=== PATIENT | female | born 1990 | race Caucasian/White ===

== ENCOUNTER 2019-08-01 14:57 | Emergency (ER) | payer OTHER ==
[~2019-08-01] VITALS: Ht 183.5 cm; Wt 59.0 kg
[2019-08-01 15:03] VITALS: BP 123/70
--- NOTE | 2019-08-01 15:11 | Emergency Room Report ---
History of Present Illness General Chief Complaint: Flu Like Symptoms Source: Patient Present Illness HPI 29-year-old female with no significant past medical history here complaining 5 days of URI symptoms. Patient reports that her symptoms started with generalized body ache, and low-grade fever as well as sore throat however that proceeded with minor cough and congestion and occasional shortness of breath. Reports that today she started having abdominal pain and few bouts of nonbloody diarrhea and one bout of nonbloody emesis. Denies any rash, recent travel, chest pain, headache and dizziness at this time. Reports that she did not take any medication for symptom relief. Patient appears to be afebrile, oxygenation within normal limits and chest x-ray within normal limits. Patient reports that she has been sitting home this whole time. Is interested in COVID testing reports that today she is feels much better. Denies . Allergies: Coded Allergies: No Known Allergies (Unverified , 08/01/19) COVID-19 Screening Contact w/high risk pt: No Recent Travel to affected area: No Experienced COVID-19 symptoms?: Yes COVID-19 symptoms experienced: Fever (T>100.4F or >38C), Shortness of Breath, Flu-Like Symptoms Patient History Past Medical History: see triage record Past Surgical History: none Pertinent Family History: none Last Menstrual Period: 07/08/2019 Now: No Immunizations: UTD Reviewed Nursing Documentation: PMH: Agreed; PSxH: Agreed Nursing Documentation-PMH Past Medical History: No Stated History Review of Systems All Other Systems: negative except mentioned in HPI Physical Exam Vital Signs Date Time Temp Pulse Resp B/P (MAP) Pulse Ox O2 Delivery O2 Flow Rate FiO2 08/01/19 14:51 98.8 80 16 123/70 (87) 96 Room Air Sp02 EP Interpretation: reviewed, normal General Appearance: no apparent distress, alert, GCS 15, non-toxic Head: normocephalic, atraumatic Eyes: bilateral eye normal inspection, bilateral eye PERRL ENT: hearing grossly normal, normal pharynx, no angioedema, normal voice Neck: full range of motion, supple/symm/no masses Respiratory: chest non-tender, lungs clear, normal breath sounds, speaking full sentences Cardiovascular #1: regular rate, rhythm, no edema Gastrointestinal: normal bowel sounds, non tender, soft, non-distended, no guarding, no rebound Rectal: deferred Musculoskeletal: back normal Neurologic: alert, motor strength/tone normal, oriented x3, sensory intact, responsive, speech normal Psychiatric: judgement/insight normal, memory normal, mood/affect normal, no suicidal/homicidal ideation Skin: no rash Lymphatic: normal inspection Medical Decision Making PA Attestation All my diagnosis and treatment plans were reviewed ad discussed with my supervising physician Dr. Mcfadden Diagnostic Impression: Primary Impression: Upper respiratory infection ER Course 29-year-old female with no significant past medical history here complaining 5 days of URI symptoms. Patient reports that her symptoms started with generalized body ache, and low-grade fever as well as sore throat however that proceeded with minor cough and congestion and occasional shortness of breath. Reports that today she started having abdominal pain and few bouts of nonbloody diarrhea and one bout of nonbloody emesis. Denies any rash, recent travel, chest pain, headache and dizziness at this time. Reports that she did not take any medication for symptom relief. Patient appears to be afebrile, oxygenation within normal limits and chest x-ray within normal limits. Patient reports that she has been sitting home this whole time. Is interested in COVID testing reports that today she is feels much better. Denies . Ddx considered but are not limited to: Coronavirus, strep pharyngitis, URI, tonsillitis, peritonsillar abscess, influneza Vital signs: are WNL, pt. is afebrile H&PE are most consistent with: URI most likely secondary to coronavirus ORDERS: Azithromycin, guaifenesin, albuterol ED INTERVENTIONS: None required at this time. DISCHARGE: At this time pt. is stable for d/c to home. Will provide printed patient care instructions, and any necessary prescriptions. Care plan and follow up instructions have been discussed with the patient prior to discharge. Take medication as directed, follow-up with your primary doctor, you need to stay home for self quarantine due to Covid 19 precautions for 14 days . Also gave contact information to the COVID testing center across the street If worsening symptoms respiratory distress return to emergency room Chest X-Ray Diagnostic Results Chest X-Ray Diagnostic Results : Chest X-Ray Ordered: Yes # of Views/Limited/Complete: 1 View Indication: Shortness of Breath EP Interpretation: Yes PA Xray: Interpretation reviewed, by supervising MD, and agrees with findings. Interpretation: no consolidation, no effusion, no pneumothorax Impression: No acute disease Electronically Signed by: Josr Ji PA-C Last Vital Signs Date Time Temp Pulse Resp B/P (MAP) Pulse Ox O2 Delivery O2 Flow Rate FiO2 08/01/19 15:03 98.8 80 16 123/70 96 Room Air Disposition: HOME, SELF-CARE Condition: Stable Scripts Albuterol Sulfate (VENTOLIN HFA) 18 Gm Hfa.aer.ad 2 PUFFS INH EVERY 6 HOURS, #18 GM 0 Refills Prov: Josr Garrido 08/01/19 Guaifenesin* (GUAIFENESIN*) 100 Mg/5 Ml Liquid 15 ML ORAL Q8H, #120 ML 0 Refills Prov: Josr Garrido 08/01/19 Azithromycin* (ZITHROMAX*) 250 Mg Tablet 250 MG ORAL DAILY, #6 TAB 0 Refills Take two tables once daily for 1 day, then one tablet once daily for 4 days. Prov: Josr Garrido 08/01/19 Patient Instructions: Upper Respiratory Infection, Adult, [id number] Additional Instructions: Medication as directed, follow with primary doctor, if worsening symptoms return to the emergency room. Take medication as directed, follow-up with your primary doctor, you need to stay home for self quarantine due to Covid 19 precautions for 14 days Josr Garrido August 01, 2019 15:11
[2019-08-01] MEDS ORDERED: GUAIFENESI100 MG/5 M ORAL (15:12)
[2019-08-01] MEDS ORDERED: VENTOLIN HFA18 GM INH (15:12)
[2019-08-01] MEDS ORDERED: ZITHROMAX250 MG ORAL (15:12)
[2019-08-01 15:40] VITALS: BP 123/70
--- NOTE | 2019-08-01 15:54 | Diagnostic Imaging Report ---
Indication: Shortness of breath Technique: One view of the chest Comparison: none Findings: The lungs are hyperinflated. The heart size is normal. No infiltrates, effusions, or congestion Impression: Hyperinflation, may indicate air trapping disorder No acute process
== END 2019-08-01 15:41 | disposition home or self-care (01) ==
LOC: EDBD 14:57 → EMR 15:21
DX: J06.9 Acute upper respiratory infection, unspecified (principal); R06.02 Shortness of breath
CPT/HCPCS: 71045; Z7502; 99283